=== PATIENT | female | born 1960 | race African-American/Black ===

== ENCOUNTER 2020-05-11 14:07 | Outpatient (CLI) | payer MEDICAID ==
[~2020-05-11] VITALS: Ht 162.6 cm; Wt 84.4 kg
[2020-05-11 14:15] VITALS: BP 136/69
--- NOTE | 2020-05-11 16:00 | Consultation ---
DATE OF CONSULTATION: 05/11/2020 CONSULTING PHYSICIAN: Walt Mejía MD CHIEF COMPLAINT: Loose stools, rectal dysfunction. PAST MEDICAL HISTORY: 1. IBS. 2. Hypertension. 3. Depression. 4. Diabetes. 5. Hypercholesteremia. PAST SURGICAL HISTORY: Cholecystectomy. MEDICATIONS: Please see medication reconciliation list. FAMILY HISTORY: No family history of GI malignancies. SOCIAL HISTORY: Patient denies any tobacco, alcohol, or drug abuse. ALLERGIES: . REVIEW OF SYSTEMS: Positive for diarrhea, bloating. No prior history of colonoscopy. PHYSICAL EXAMINATION: VITAL SIGNS: Temperature 98.2, blood pressure 136/69, pulse is 90, respirations 20. HEENT: Normocephalic, atraumatic. Sclerae are anicteric. NECK: Supple. No evidence of obvious lymphadenopathy. CARDIOVASCULAR: Regular rate and rhythm. Plus S1-S2. LUNGS: Clear to auscultation bilaterally. ABDOMEN: Positive bowel sounds. Soft and nontender. No rebound. No guarding. No peritoneal sign. EXTREMITIES: No cyanosis, no clubbing, no edema. ASSESSMENT: This is a 59-year-old female with no prior colonoscopy, who has complained of some leakage and also some loose stools. Denies any blood in the rectum. No family history of GI malignancy. PLAN: Patient needs a colonoscopy given her age and no prior colonoscopy and we will re-evaluate after that. Patient was given instruction for colonoscopy. Risks and benefits of procedure were explained to her. She will be scheduled as soon as authorization is obtained. Walt Mejía M.D. DR: [id number] JOB#: [id number] CC:
[2020-05-12] MEDS ORDERED: IBUPROFEN600 M1 ORAL (14:20)
[2020-05-12] MEDS ORDERED: EXFORGE HCT 101 EACH ORAL (14:20)
[2020-05-12] MEDS ORDERED: INSULIN SUBQ (14:20)
[2020-05-12] MEDS ORDERED: JANUVIA50 MG ORAL (14:20)
[2020-05-12] MEDS ORDERED: VENLAFAXINE HC150 MG ORAL (14:20)
[2020-05-12] MEDS ORDERED: SPIRONOLACTONE25 MG ORAL (14:20)
[2020-05-12] MEDS ORDERED: TRAZODONE HCL50 MG ORAL (14:20)
== END 2020-05-11 16:07 | disposition home or self-care (01) ==
LOC: PAN 14:07
DX: R19.7 Diarrhea, unspecified (principal); R14.0 Abdominal distension (gaseous); I10 Essential (primary) hypertension; F32.9 Major depressive disorder, single episode, unspecified; E11.9 Type 2 diabetes mellitus without complications; E78.00 Pure hypercholesterolemia, unspecified; K59.9 Functional intestinal disorder, unspecified; Z90.49 Acquired absence of other specified parts of digestive tract
CPT/HCPCS: G0463